=== PATIENT | male | born 1970 | race American Indian/Alaskan Native ===

== ENCOUNTER 2017-01-14 15:40 | Emergency (ER) | payer MEDICAID ==
[2017-01-14 15:41] VITALS: BMI 22.9
[2017-01-14 16:12] VITALS: TEMP 97.9; O2SAT 100
--- NOTE | 2017-01-14 16:43 | ED PDOC ---
HPI: Eye Injury/Pain Time Seen by Provider: 01/14/17 16:13 Chief Complaint (Nursing): Eye Problem Chief Complaint (Provider): eye pain History Per: Patient History/Exam Limitations: no limitations Onset/Duration Of Symptoms: Days (x4) Current Symptoms Are (Timing): Still Present Injury To Eye?: No Additional Complaint(s): William Carroll is a 46 year old male who presents to the ED with right eye redness, swelling, and pain x4 days. Patient denies injury to the area. Confirms right eye discharge. No fever or chills. Patient does not wear contacts or glasses. PMD: No PMD Past Medical History Reviewed: Historical Data, Nursing Documentation, Vital Signs Vital Signs: Last Vital Signs Temp 97.9 F 01/14/17 16:09 Pulse 65 01/14/17 16:09 Resp 16 01/14/17 16:09 BP 175/112 H 01/14/17 16:09 Pulse Ox 100 01/14/17 16:09 - Medical History PMH: HTN (not on meds) - Surgical History Surgical History: Hernia Repair - Family History Family History: States: No Known Family Hx - Living Arrangements Living Arrangements: With Family - Social History Current smoker - smoking cessation education provided: No Ex-Smoker (has not smoked in the last 12 months): Yes Alcohol: Occasional Drugs: Denies - Immunization History Hx Tetanus Toxoid Vaccination: No Hx Influenza Vaccination: No Hx Pneumococcal Vaccination: No - Home Medications Home Medications: Ambulatory Orders Medication Instructions Recorded Lisinopril/Hydrochlorothiazide 1 tab PO DAILY 01/30/15 [Lisinopril-Hydrochlorothiazide 12.5 mg-10 mg] Acetaminophen [Acetaminophen Extra 2 tab PO Q6 PRN #24 tablet 05/06/15 Strength] Albuterol HFA [Ventolin HFA 90 2 puff IH [id number] PRN #1 inhaler 05/06/15 mcg/actuation (8 g)] Cyclobenzaprine [Cyclobenzaprine 10 mg PO Q8H #8 tab 11/20/15 HCl] oxyCODONE/Acetaminophen [Percocet 1 ea PO Q6H PRN #10 tab 11/20/15 5/325 mg Tab] Clindamycin [Cleocin] 300 mg PO TID #21 cap 01/14/17 Tobramycin [Tobrex] 5 ml TOP QID #1 bottle 01/14/17 - Allergies Allergies/Adverse Reactions: Allergies Allergy/AdvReac Type Severity Reaction Status Date / Time No Known Allergies Allergy Verified 01/31/15 16:16 Review of Systems ROS Statement: Except As Marked, All Systems Reviewed And Found Negative Eyes: Positive for: Pain (right), Eyelid Inflammation (right), Redness (right), Other (right eye discharge). Negative for: Vision Change Neurological: Negative for: Headache, Dizziness Physical Exam - Reviewed Nursing Documentation Reviewed: Yes Vital Signs Reviewed: Yes - Physical Exam Appears: Positive for: Well, Non-toxic, No Acute Distress Head Exam: Positive for: ATRAUMATIC, NORMAL INSPECTION, NORMOCEPHALIC Skin: Positive for: Normal Color, Rash Eye Exam: Positive for: Other (Left eye within normal limits). Negative for: Normal appearance (Styes present on upper and lower lid of right eye with purulent discharge noted from right eye, no gross FB, mild swelling to upper and lower lid), Nystagmus, Scleral icterus Neurologic/Psych: Positive for: Alert, Oriented - ECG O2 Sat by Pulse Oximetry: 100 (RA) Pulse Ox Interpretation: Normal Medical Decision Making Medical Decision Making: Time: 16:41 Initial Impression: 46 year old male with styes and blepharitis Plan: --Motrin 600 mg PO given in ED. --Upon provider evaluation patient is medically stable, and requires no further treatment in the ED at this time. Patient will be discharged home with Rx for Tobrex and Cleocin. Counseling was provided and all questions were answered regarding diagnosis and need for followup with [facility]. There is agreement to discharge plan. Return if symptoms persist or worsen. Scribe Attestation: Documented by Suraj Araiza, acting as a scribe for Sherie Chandler PA-C Provider Scribe Attestation: All medical record entries made by the Scribe were at my direction and personally dictated by me. I have reviewed the chart and agree that the record accurately reflects my personal performance of the history, physical exam, medical decision making, and the department course for this patient. I have also personally directed, reviewed, and agree with the discharge instructions and disposition. Disposition - Clinical Impression Clinical Impression: Sty, Blepharitis - Patient ED Disposition Is Patient to be Admitted: No Counseled Patient/Family Regarding: Diagnosis, Need For Followup, Rx Given - Disposition Referrals: Hayden Us MD [Staff Provider] - Disposition: Routine/Home Disposition Time: 16:41 Condition: STABLE Additional Instructions: Take rx meds as directed. Over the counter advil as needed for pain. Follow up with primary care doctor or occupancy specialist in 2-3 days. Apply warm compresses with epsom salts to affected area and often as possible. Prescriptions: Clindamycin [Cleocin] 300 mg PO TID #21 cap Tobramycin [Tobrex] 5 ml TOP QID #1 bottle Instructions: Stye (ED), Blepharitis (ED) Forms: [facility] ([place]ish), [facility] ED School/Work Excuse
[2017-01-14 18:12] VITALS: BP 163/85; PULSE 89; RESP 17
== END 2017-01-14 16:51 | disposition home or self-care (01) ==
LOC: H.ER 15:40
DX: H01.001 Unspecified blepharitis right upper eyelid (principal); I10 Essential (primary) hypertension

== ENCOUNTER 2017-02-13 10:49 | Emergency (ER) | payer OTHER ==
[2017-02-13 10:50] VITALS: BMI 22.9
[2017-02-13 12:13] LABS: BASO % 1.1 % (0.0-2.0); EOS # 0.1 K/uL (0.0-0.7); EOS % 1.4 % (0.0-4.0); HEMATOCRIT 46.6 % (35.0-51.0); LYMPH % 26.8 % (20.0-40.0); MEAN CELL VOLUME 95.5 fl (80.0-94.0); MEAN CORPUSCULAR HEMOGLOBIN 31.8 pg (27.0-31.0); MEAN CORPUSCULAR HGB CONC 33.3 g/dL (33.0-37.0); MEAN PLATELET VOLUME 8.1 fl (7.2-11.7); MONO # 0.4 K/uL (0.0-0.8); MONO % 11.6 % (0.0-10.0); NEUT # 2.3 K/uL (1.8-7.0); NEUT % 59.1 % (50.0-75.0); NRBC % 0.1 % (0.0-0.0); WHITE BLOOD COUNT 3.9 K/uL (4.8-10.8)
[2017-02-13 12:23] LABS: ALB/GLOB RATIO 1.3 (1.0-2.1); ALKALINE PHOSPHATASE 66 U/L (38-126); ALT/SGPT 52 U/L (21-72); AST/SGOT 65 U/L (17-59); BILIRUBIN,TOTAL 1.6 mg/dl (0.2-1.3); BLOOD UREA NITROGEN 12 mg/dl (9-20); CALCIUM 9.3 mg/dL (8.4-10.2); CARBON DIOXIDE 21 mmol/L (22-30); CHLORIDE 99 mmol/L (98-107); GFR AFRICAN-AMERICAN > 60; GLUCOSE,RANDOM 79 mg/dL (75-110); LIPASE 119 U/L (23-300); POTASSIUM 4.1 MMOL/L (3.6-5.0); SODIUM 136 mmol/l (132-148); TOTAL PROTEIN 8.8 G/DL (6.3-8.2)
--- NOTE | 2017-02-13 12:43 | ED PDOC ---
HPI: Abdomen Time Seen by Provider: 02/13/17 11:00 Chief Complaint (Nursing): Abdominal Pain Chief Complaint (Provider): Abdominal Pain History Per: Patient History/Exam Limitations: no limitations Onset/Duration Of Symptoms: Days (x 3) Current Symptoms Are (Timing): Still Present Additional Complaint(s): Anupam is a 46 year old male, with a past medical history of hypertension, who presents to the emergency department with abdominal pain for 4 days. Patient reports vomiting and diarrhea for 2 days. Patient states he has hypertension, but ran out of his medications 1 month ago. States he does not have PCP and gets his medications from ER. PMD: No Family Provider Past Medical History Reviewed: Historical Data, Nursing Documentation, Vital Signs Vital Signs: Last Vital Signs Temp 98 F 02/13/17 14:42 Pulse 60 02/13/17 17:05 Resp 18 02/13/17 17:05 BP 157/90 H 02/13/17 17:05 Pulse Ox 100 02/14/17 16:14 - Medical History PMH: HTN (not on meds) Denies: Diabetes, Hepatitis, HIV, Seizures, Sexually Transmitted Disease - Surgical History Surgical History: Hernia Repair - Family History Family History: States: Unknown Family Hx - Social History Current smoker - smoking cessation education provided: Yes Alcohol: Occasional - Immunization History Hx Tetanus Toxoid Vaccination: No Hx Influenza Vaccination: No Hx Pneumococcal Vaccination: No - Home Medications Home Medications: Ambulatory Orders Medication Instructions Recorded Lisinopril/Hydrochlorothiazide 1 tab PO DAILY 01/30/15 [Lisinopril-Hydrochlorothiazide 12.5 mg-10 mg] Hydrochlorothiazide [Microzide] 12.5 mg PO DAILY #10 cap 02/13/17 - Allergies Allergies/Adverse Reactions: Allergies Allergy/AdvReac Type Severity Reaction Status Date / Time No Known Allergies Allergy Verified 02/13/17 11:06 Review of Systems ROS Statement: Except As Marked, All Systems Reviewed And Found Negative Gastrointestinal: Positive for: Vomiting, Abdominal Pain, Diarrhea Physical Exam - Reviewed Nursing Documentation Reviewed: Yes Vital Signs Reviewed: Yes - Physical Exam Appears: Positive for: Non-toxic Head Exam: Positive for: ATRAUMATIC, NORMAL INSPECTION, NORMOCEPHALIC Skin: Positive for: Normal Color Eye Exam: Positive for: Normal appearance ENT: Positive for: Normal ENT Inspection Neck: Positive for: Normal Cardiovascular/Chest: Positive for: Regular Rate, Rhythm Respiratory: Positive for: Normal Breath Sounds. Negative for: Respiratory Distress Gastrointestinal/Abdominal: Positive for: Normal Exam, Soft. Negative for: Tenderness Extremity: Positive for: Normal ROM Neurologic/Psych: Positive for: Alert, Oriented (x 3) - Laboratory Results Result Diagrams: 02/13/17 11:38 02/13/17 11:38 - ECG O2 Sat by Pulse Oximetry: 100 (RA) Pulse Ox Interpretation: Normal Medical Decision Making Medical Decision Making: Time: 11:50 Impression: 46 year old male with abdominal pain Plan: r/o gastritis - CMP - Lipase - CBC - Sodium Chloride 1,000 ml IV 999 mls/hr Time: 15:20 Patient feeling better. pain resolved. abdomen benign. Tolerates PO. Blood pressure still high. Will be given hypertension medications. - Trandate 20 mg PO IVP STAT Time: 16:22 - Catapres 0.2 mg PO pts bp improved. pt stable for dc. instructed importance of oupt follow up for bp control. Rx hctz given Scribe Attestation: Documented by Qamar Lei, acting as a scribe for Shaheed Faulkner MD Provider Scribe Attestation: All medical record entries made by the Scribe were at my direction and personally dictated by me. I have reviewed the chart and agree that the record accurately reflects my personal performance of the history, physical exam, medical decision making, and the department course for this patient. I have also personally directed, reviewed, and agree with the discharge instructions and disposition. Disposition - Clinical Impression Clinical Impression: Abdominal pain, Hypertension, Gastroenteritis - Patient ED Disposition Is Patient to be Admitted: No Counseled Patient/Family Regarding: Studies Performed, Diagnosis, Need For Followup - Disposition Referrals: [facility] [Outside] [facility] [Outside] Disposition: Routine/Home Disposition Time: 13:00 Condition: IMPROVED Additional Instructions: follow up with the clinic in 1-2 days it is very important that you follow up return to the ED with any worsening or concerning symptoms Prescriptions: Hydrochlorothiazide [Microzide] 12.5 mg PO DAILY #10 cap Instructions: Hypertension (ED) Forms: [facility] ([place]), [facility] ED School/Work Excuse
[2017-02-13] MEDS: Sodium Chloride 0.9% 1,000 ML IV STA (12:52)
[2017-02-13 14:06] VITALS: RESP 18; TEMP 98
[2017-02-13] MEDS: Labetalol 5mg/ml (4ml) IVP STA (15:47)
[2017-02-13] MEDS ORDERED: Labetalol 5mg/ml (4ml) ONE (15:47)
[2017-02-13 17:06] VITALS: BP 157/90; PULSE 60
[2017-02-14 16:14] VITALS: O2SAT 100
== END 2017-02-13 17:06 | disposition home or self-care (01) ==
LOC: H.ER 10:49
DX: K52.9 Noninfective gastroenteritis and colitis, unspecified (principal); I10 Essential (primary) hypertension; F17.200 Nicotine dependence, unspecified, uncomplicated
CPT/HCPCS: 80053; 83690; 85025; 96374; 99283; J7040